=== PATIENT | male | born 1945 | race African-American/Black ===

== ENCOUNTER 2019-07-23 15:50 | Emergency (ER) | payer MEDICARE, OTHER ==
[~2019-07-23] VITALS: Ht 172.7 cm; Wt 77.3 kg
[~2019-07-23 15:50] MED LIST: ATOR40TA28 PO; HYDR-1475 PO; LEVE500T53 PO; PHENL PO
[2019-07-23 16:39] LABS: EOSINOPHILS % (AUTO) 1.4 % (1.0-6.0); HEMATOCRIT 39.5 % (41-53); HEMOGLOBIN 11.8 g/dL (13.5-17.5); LYMPHOCYTES # (AUTO) 1.8 K/uL (1.0-4.8); LYMPHOCYTES % (AUTO) 24.5 % (22.0-44.0); MEAN CORPUSCULAR HEMOGLOBIN 22.5 pg (26.0-34.0); MEAN CORPUSCULAR VOLUME 75 fL (80-100); NEUTROPHILS # (AUTO) 4.3 K/uL (1.8-7.7); NEUTROPHILS % (AUTO) 59.1 % (40.0-70.0); PLATELET COUNT (AUTO) 320 K/uL (150-450); RED BLOOD CELL COUNT(AUTO) 5.26 MIL/uL (4.50-5.90); RED CELL DISTRIBUTION WIDTH 16.8 % (11.5-14.5)
[2019-07-23 16:41] LABS: SALICYLATE 5.6 mg/dL (2.8-20.0)
[2019-07-23 16:42] LABS: ANION GAP 21 mmol/L (8-16); CALCIUM, TOTAL 8.6 mg/dL (8.8-10.5); CARBON DIOXIDE 16 mmol/L (22-29); CHLORIDE 104 mmol/L (98-107); CREATININE 1.64 mg/dL (0.60-1.30); GLOMERULAR FILTR. RATE CALC 37 mL/min (>60); GLUCOSE,RANDOM 145 mg/dL (70-110); POTASSIUM 3.8 mmol/L (3.5-5.1); SODIUM SERUM 141 mmol/L (136-145); UREA NITROGEN, BLOOD 14 mg/dL (7-18)
[2019-07-23 17:07] LABS: ALANINE AMINOTRANSFERASE 30 U/L (12-78); ALBUMIN 3.9 g/dL (3.4-5.0); ALKALINE PHOSPHATASE 77 U/L (46-116); ASPARTATE AMINOTRANSFERASE 23 U/L (15-37); BILIRUBIN,TOTAL 0.1 mg/dL (0.1-1.0); CREATINE KINASE, TOTAL ONLY 127 U/L (39-308); TOTAL PROTEIN, SERUM 7.1 g/dL (6.4-8.2)
[2019-07-23 17:09] LABS: ACETAMINOPHEN < 2 mcg/mL (10-30); PHENYTOIN (DILANTIN) < 0.5 mcg/mL (10.0-20.0); VALPROIC ACID < 3 mcg/mL (50-100)
[2019-07-23 17:15] LABS: B-TYPE NATRIURETIC PEPTIDE 9 pg/mL (0-100)
[2019-07-23] MEDS ORDERED: LevETIRAcetam 500 MG in DEXTROSE 5%-WATER 100 ML IV ONE (20:45)
[2019-07-23 21:37] LABS: AMPHET/METH SCREEN,URINE NEGATIVE (NEGATIVE); BARBITURATE SCREEN, URINE NEGATIVE (NEGATIVE); BENZODIAZEPINES SCREEN,URINE POSITIVE (NEGATIVE); CANNABINOID SCREEN,URINE NEGATIVE (NEGATIVE); COCAINE SCREEN,URINE NEGATIVE (NEGATIVE); METHADONE SCREEN, URINE NEGATIVE (NEGATIVE); OPIATE SCREEN,URINE NEGATIVE (NEGATIVE)
[2019-07-23 21:38] LABS: APPEARANCE,URINE CLEAR (CLEAR); BILIRUBIN,URINE NEGATIVE (NEGATIVE); GLUCOSE, URINE (UA) NEGATIVE (NEGATIVE); KETONES,URINE NEGATIVE (NEGATIVE); LEUKOCYTE ESTERASE ,URINE NEGATIVE (NEGATIVE); NITRATE,URINE NEGATIVE (NEGATIVE); OCCULT BLOOD,URINE NEGATIVE (NEGATIVE); PROTEIN,URINE NEGATIVE (NEGATIVE); UROBILINOGEN,URINE 0.2 mg/dL (<=1.0)
[2019-07-23 21:41] LABS: PHENCYCLIDINE SCREEN,URINE NEGATIVE (NEGATIVE)
[2019-07-23 23:04] VITALS: BP 129/99
== END 2019-07-24 00:39 | disposition short-term general hospital (02) ==
LOC: EDBD 15:52 → EMS 15:52
DX: G40.909 Epilepsy, unspecified, not intractable, without status epilepticus (principal); N28.9 Disorder of kidney and ureter, unspecified
CPT/HCPCS: 36415; 70450; 71045; 80053; 80164; 80185; 80307; 81003; 82550; 83880; 84484; 85025; 93005; 96374; 99285; G0480; J0712; J7060; G0481